=== PATIENT | male | born 1985 | race Caucasian/White ===

== ENCOUNTER 2018-06-30 20:19 | Emergency (ER) | payer SELFPAY ==
[2018-06-30 20:25] VITALS: BP 119/86; PULSE 98; TEMP 98.5; BMI 27.4
--- NOTE | 2018-06-30 20:28 | PDOC ---
Rapid Medical Evaluation Time Seen by Provider: 06/30/18 20:23 Medical Evaluation: Allergies Allergy/AdvReac Type Severity Reaction Status Date / Time No Known Allergies Allergy Verified 06/30/18 20:25 Vital Signs Temp Pulse Resp BP Pulse Ox 98.5 F 98 H 18 119/86 99 06/30/18 20:20 06/30/18 20:20 06/30/18 20:20 06/30/18 20:20 06/30/18 20:20 06/30/18 20:26 I have performed a brief in person evaluation of this patient. The patient presents with chief complaint of : urinary frequency, dysuria and nausea with vomiting for 2 days. also back pains Pertinent PE findings: no CVAT, abd soft NT/ND I have ordered the following: UA, UCx. KUB x-ray The patient will proceed to the ER for further evaluation. Discharge Disposition - Diagnosis Dysuria - Referrals - Patient Instructions - Post Discharge Activity
[2018-06-30 21:24] LABS: URINE APPEARANCE CLEAR; URINE BILIRUBIN NEGATIVE (<2.0 mg/dL); URINE COLOR LTYELLOW; URINE GLUCOSE (UA) NEGATIVE (NEGATIVE); URINE KETONE NEGATIVE (NEGATIVE); URINE LEUK ESTERASE NEGATIVE (NEGATIVE); URINE NITRITE NEGATIVE (NEGATIVE); URINE PROTEIN NEGATIVE (NEGATIVE); URINE UROBILINOGEN NEGATIVE mg/dL (0.2-1.0)
[2018-06-30 21:29] LABS: URINE MUCUS RARE
--- NOTE | 2018-06-30 22:45 | PDOC ---
Attending Attestation - HPI HPI: 06/30/18 22:48 32M with no comorbidities c/o 2 day history of right flank pain w/ associated itching and burning upon urination. Denies hx of STI or hematuria. Pt states he is in a monogamous relationship with one female +subjective fever. +nausea with 3 episodes of vomiting Pt reports taking 2 PO Tylenol [employer]. <Corinne Garcia - Last Filed: 06/30/18 22:48> - Resident Resident Name: Garfield Curry - ED Attending Attestation I have performed the following: I have examined & evaluated the patient, The case was reviewed & discussed with the resident, I agree w/resident's findings & plan, Exceptions are as noted - Physicial Exam PE: 07/01/18 05:53 GENERAL: Awake, alert, and fully oriented, in no acute distress. LUNGS: Breath sounds equal, clear to auscultation bilaterally. HEART: Regular rate and rhythm, normal S1 and S2 without murmur, rub or gallop. ABDOMEN: Soft, nontender, not distended NEUROLOGICAL: Cranial nerves II-XII intact. Normal speech. gait not observed. SKIN: Warm, dry, normal turgor, no rashes or lesions noted, normal capillary refill. - Medical Decision Making 07/01/18 05:54 Laboratory Tests 06/30/18 07/01/18 07/01/18 21:05 00:33 00:33 WBC 9.3 Hgb 16.7 Hct 47.7 Plt Count 75 L BUN 18 Creatinine 0.9 Urine WBC (Auto) None Urine RBC (Auto) [address] with left renal pelvis calcification, no ureterolithiasis Will discharge to home Follow up with PMD <Lori Romero - Last Filed: 07/01/18 05:56> Attestations - Attestations Documentation prepared by Corinne Garcia, acting as medical assistant secretary for Lori Romero MD. <Corinne Garcia - Last Filed: 06/30/18 22:48>
[2018-06-30] MEDS ORDERED: KETOROLAC TROMETHAMINE 10 MG TABLET PO ONE (22:47)
--- NOTE | 2018-07-01 00:43 | PDOC ---
History of Present Illness - General Chief Complaint: Urinary Problem Stated Complaint: URINARY PROBLEM Time Seen by Provider: 06/30/18 20:23 History Source: Patient, Spouse Exam Limitations: Language Barrier (Pt is Croatian speaking only. Translation provided by telephone spanish interpreter/translator.) - History of Present Illness Initial Comments: 32 y/o male presenting to [facility] ER via private auto complaining of left flank pain and dysuria x2 days. Pt states the pain started suddenly in the left flank and it has remained constant since onset. Endorses dysuria without hematuria or discharge, as well as subjective fever yesterday and 3x episodes of emesis today. Trialed 2x PO tylenol prior to arrival with minimal pain relief. Denies h /o similar. Pt reports he is in a managomous heterosexeual relationship with only one female parter in the past 6 months. Denies h/o STD. EtOH: Social drinker, none in the past several days Tobacco: Former smoker, quit [address] Drugs: Denies PCP: None Medical Hx: - Pt denies past medical history. Denies prescription medications. Surgical Hx: - Pt denies past surgical history. Past History - Past Medical History Allergies/Adverse Reactions: Allergies Allergy/AdvReac Type Severity Reaction Status Date / Time No Known Allergies Allergy Verified 06/30/18 20:25 Home Medications: Ambulatory Orders Naproxen [Naprosyn -] 500 mg PO BID PRN 7 Days #14 tablet 07/01/18 COPD: No - Suicide/Smoking/Psychosocial Hx Smoking History: Never smoked Review of Systems - Review of Systems Able to Perform ROS?: Yes Is the patient limited Armenian proficient: Yes Constitutional: Yes: Chills, Diaphoresis, Fever HEENTM: No: Throat Pain Respiratory: No: Shortness of Breath Cardiac (ROS): No: Chest Pain, Syncope ABD/GI: Yes: Nausea, Vomiting. No: Constipated, Diarrhea, Difficulty Swallowing , Rectal Bleeding, Abdominal cramping : Yes: Dysuria, Flank Pain. No: Discharge, Frequency, Hematuria, Incontinence , Urgency, Testicular Mass, Testicular Swelling, Lesions, Testicular Pain Musculoskeletal: Yes: Back Pain Integumentary: No: Bruising, Lesions Neurological: No: Weakness Hematologic/Lymphatic: No: Easy Bleeding, Easy Bruising *Physical Exam - Vital Signs Last Vital Signs Temp Pulse Resp BP Pulse Ox 98.5 F 98 H 18 119/86 99 06/30/18 20:20 06/30/18 20:20 06/30/18 20:20 06/30/18 20:20 06/30/18 20:20 - Physical Exam Comments: Constitutional: Well-developed, well-nourished male in no acute distress but mild discomfort. Found sitting upright on edge of hospital bed. Alert and oriented x4. Answered all questions appropriately and completely. Speech was non -labored, non-pressured. Croatian speaking only. HEENT: Normocephalic. No obvious external signs of trauma. Hearing grossly normal. No nasal discharge. Neck is supple, trachea is midline. Cardiovascular: Regular rate and regular rhythm. No murmur, rubs, clicks, or gallops. Peripheral pulses: Radial pulses full. Respiratory: Breathing unlabored. Equal chest rise and fall. Clear to auscultation bilaterally. No stridor, no wheezing, no rhonchi. Gastrointestinal: abdomen is soft, non-tender, non-distended. No hepatosplenemegaly. No pulsatile masses. No overlying skin lesions or obvious signs of trauma. Neuro: Alert and oriented. Moving all four extremities spontaneously. MSK / Skin: Subjective tenderness to left flank without guarding. Warm, dry, and intact. No bruising, rashes, or other lesions. No palpable nodules. Lymphatics: No cervical, supraclavicular, epitrochlear or inguinal nodes palpated. : No R or L CVA tenderness. Psych: Affect: appropriate. Mood: normal. : Genital exam revealed normally developed male genitalia. Uncircumcised penis. No scrotal mass or tenderness, no hernias or inguinal lymphadenopathy. No perineal or perianal abnormalities are seen. No genital lesions or urethral discharge. RN chaperoned exam. ED Treatment Course - LABORATORY CBC & Chemistry Diagram: 07/01/18 00:33 07/01/18 00:33 - ADDITIONAL ORDERS Additional order review: Laboratory Results 06/30/18 21:05 Urine Color Ltyellow Urine Appearance Clear Urine pH 6.0 Ur Specific [place] 1.016 Urine Protein Negative Urine Glucose (UA) Negative Urine Ketones Negative Urine Blood 1+ H Urine Nitrite Negative Urine Bilirubin Negative Urine Urobilinogen Negative Ur Leukocyte Esterase Negative Urine WBC (Auto) None Urine RBC (Auto) 21 Urine Mucus Rare - RADIOLOGY Radiology Studies Ordered: Category Date Time Status SPIRAL- RENAL-STONE CT [CT] Stat CT Scan 06/30/18 22:47 Taken Radiograph Interpretation: Spiral Non-Con CT of Abdomen: Dylan Galaviz MD wrote on Jul 01, 2018 at 12:12 AM: Referring Physician: BISHOP RODRÍGUEZ Patient Name: HAIR BARON THIS IS A PRELIMINARY REPORT FROM [facility] DATE OF SERVICE: 2018-06-30 23:36:21 IMAGES: 601 EXAM: CT abdomen and pelvis without contrast HISTORY: Left flank pain COMPARISON: None. FINDINGS: Abdomen Liver: Normal Spleen: Normal Pancreas: Normal Gallbladder: Normal Stomach: Normal Small bowel: Normal Large bowel: Normal Appendix: Normal Adrenals:Normal Kidneys: There is a 4 mm nonobstructing left calyceal renal stone Vascular: Normal Lymphatic: Normal Peritoneal: No free peritoneal air or fluid Pelvis: Prostate: normal Rectum: Normal Bladder: Normal The inferior thorax: Normal General: Skeletal: Normal Abdominal wall: Normal IMPRESSION: Nephrolithiasis Individualized dose optimization techniques were used for this CT. THIS DOCUMENT HAS BEEN ELECTRONICALLY SIGNED Dylan Galaviz MD 07/01/2018 00:10 EST - Medications Given in the ED: ED Medications Discontinued Medications Generic Name Dose Route Start Last Admin Trade Name Freq PRN Reason Stop Dose Admin Ketorolac Tromethamine 20 mg 06/30/18 22:47 06/30/18 23:00 Toradol PO 06/30/18 22:48 20 mg ONCE ONE Administration Medical Decision Making - Medical Decision Making *Reviewed vital signs, nursing notes, and prior visit documentation (if available). Previously healthy 32 y/o male complaining of left flank pain with dysuria x2 days. Afebrile. Vitals unremarkable. Subjective left lower back/flank pain. Suspect UTI versus Nephrolithiasis. Low suspicion for appendicitis, diverticulitis, testicular torsion, gonorrhea, chlamydia, epididymitis. UA, urine culture, and KUB ordered by A. Unremarkable KUB. UA positive for blood but unremarkable for pyuria, leukocyte esterase, or nitrites. Low suspicion for UTI. Culture pending. Continue to suspect nephrolithiasis. Will obtain spiral CT as no documented history of similar. CT remarkable for 4 mm nonobstructing left calyceal renal stone. Pt stable for discharge home with outpatient urology follow up. Referral placed for urology and resident clinic follow up. Prescription for Naproxen sent. Pt discharged from the department without further incident. *DC/Admit/Observation/Transfer Diagnosis at time of Disposition: Left nephrolithiasis - Discharge Dispostion Disposition: HOME Condition at time of disposition: Good Decision to Admit order: No - Prescriptions Prescriptions: Naproxen [Naprosyn -] 500 mg PO BID PRN 7 Days #14 tablet PRN Reason: Pain - Referrals Referrals: [facility] [place] [Provider Group] Alirio White MD [Staff Physician] - - Patient Instructions Printed Discharge Instructions: DI for Kidney Stones Additional Instructions: La tomografa computarizada mostr un clculo renal en el lado jayna. Media es probablemente lo que te est lastimando. Debera desaparecer con el tiempo. He enviado vicente receta para Naproxen a [facility] en [address] Timothy farmacia est abierta las 24 horas. [place] katelyn se indica en el paquete. James puede darcy el contador Tylenol o Advil segn sea necesario para el dolor. Darcy katelyn se indica en el prospecto del paquete. No exceda la dosis recomendada. Debera justo a un urlogo dentro de la prxima semana. Te he recomendado para que veas al Dr. Alirio White. Tendr que llamar a la oficina para programar vicente ranjit. Ingres vicente referencia para que brice a un mdico de atencin primaria en [facility] en la clnica de atencin primaria de [place]. Tendr que llamar para hacer vicente ranjit en los prximos 2-4 kemp. El nmero de telfono es [phone]. La direccin es: [facility] en [place] [address] [facility], [facility] [place] [address] Dirjase al servicio de urgencias ms cercano si lozada afeccin empeora o si luna que necesita vicente evaluacin de emergencia adicional. Print Language: GEORGIAN - Post Discharge Activity
[2018-07-01 00:59] LABS: BASO % 0.8 % (0-2.0); EOS % 3.4 % (0-4.5); HEMATOCRIT 47.7 % (35.4-49); HEMOGLOBIN 16.7 GM/dL (11.7-16.9); LYMPH % 21.9 % (8-40); MCH 28.9 pg (25.7-33.7); MCHC 35.1 g/dl (32.0-35.9); MEAN CELL VOLUME 82.3 fl (80-96); MEAN PLT VOLUME 8.7 fl (7.5-11.1); MONO % 9.1 % (3.8-10.2); NEUT % 64.8 % (42.8-82.8); PLATELET COUNT 75 K/MM3 (134-434); RBC 5.79 M/mm3 (4.00-5.60); RDW 13.4 % (11.9-15.9); WHITE BLOOD COUNT 9.3 K/mm3 (4.0-10.0)
[2018-07-01 01:20] LABS: ANION GAP 7 MMOL/L (8-16); BLOOD UREA NITROGEN 18 mg/dL (7-18); CALCIUM 8.6 mg/dL (8.5-10.1); CHLORIDE 105 mmol/L (98-107); CO2 27 mmol/L (21-32); CREATININE 0.9 mg/dL (0.7-1.3); GLUCOSE,RANDOM 115 mg/dL (74-106); POTASSIUM 3.6 mmol/L (3.5-5.1); SODIUM 139 mmol/L (136-145)
== END 2018-07-01 01:20 | disposition home or self-care (01) ==
LOC: JER 20:19
DX: N20.0 Calculus of kidney (principal)
CPT/HCPCS: 36415; 74018-TC-FY; 74176; 80048; 81003; 81015; 85025; 87086; 99281-25